=== PATIENT | female | born 1930 | race Caucasian/White ===

== ENCOUNTER 2017-08-26 09:06 | Emergency (ER) | payer MEDICARE, OTHER ==
[~2017-08-26] VITALS: Ht 160 cm; Wt 47.2 kg
[2017-08-26 09:10] VITALS: BP 127/61
[2017-08-26] MEDS ORDERED: ACET-704 PO ×2 (09:47→09:53)
[2017-08-26] MEDS ORDERED: METH4TAB2 PO ×2 (09:47→10:17)
--- NOTE | 2017-08-26 09:53 | RAD ---
Three-view left wrist radiographs 08/26/2017 CLINICAL HISTORY: Left wrist pain and swelling. PA, lateral and oblique digital radiographs of the left wrist were obtained. There is diffuse osteopenia of the visualized bony structures. No fracture or dislocation of the left wrist is seen. Chondrocalcinosis is seen involving the left TFCC. Mild to moderate degenerative changes are seen involving the radiocarpal and midcarpal joint. Severe degenerative changes are seen involving the first carpal metacarpal joint. Calcification of the left radial and ulnar arteries is noted. 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 No acute osseous abnormality is seen. Electronically signed by: Hua Hinojosa MD (08/26/2017 9:49 AM) [facility]
== END 2017-08-26 09:50 | disposition home or self-care (01) ==
LOC: ER 09:06
DX: M13.832 Other specified arthritis, left wrist (principal)
CPT/HCPCS: 29125; 73110; 99284